=== PATIENT | male | born 2000 | race Caucasian/White ===

== ENCOUNTER 2022-05-09 07:47 | Emergency (ER) | payer OTHER ==
[2022-05-09 08:51] LABS: SARS-CoV-2 Antigen Rapid Res Negative (Negative)
--- NOTE | 2022-05-09 08:53 | EDPHYS ---
Physician Documentation [facility] Name: Kvng Kelly Age: 21 yrs Sex: Male : 2000 Arrival Date: 05/09/2022 Time: 07:49 Bed 19 Private MD: ED Physician Lisa Peck HPI: 05/09 08:31 This 21 yrs old Male presents to ER via Ambulatory with complaints of r/o covid. sp3 08:31 21-year-old who is in the presents to the ED for a COVID-19 test to allow him sp3 to fly in an airplane. Patient denies any symptoms whatsoever and states that he was told to come in for the test. Systems negative for fever, cough, congestion, chest pain, shortness of breath, known COVID-19 contacts, or any other symptoms at this time.. Historical: - Allergies: 07:56 No Known Allergies; ll1 - PMHx: 07:56 None; ll1 - PSHx: 07:56 None; ll1 - Immunization history:: Client reports receiving the 2nd dose of the Covid vaccine. - Social history:: Smoking status: Patient denies any tobacco usage or history of. ROS: 08:32 Constitutional: Negative for fever, chills, and weight loss, Eyes: Negative for injury, sp3 pain, redness, and discharge, ENT: Negative for injury, pain, and discharge, Neck: Negative for injury, pain, and swelling, Cardiovascular: Negative for chest pain, palpitations, and edema, Respiratory: Negative for shortness of breath, cough, wheezing, and pleuritic chest pain, Abdomen/GI: Negative for abdominal pain, nausea, vomiting, diarrhea, and constipation, Back: Negative for injury and pain, MS/Extremity: Negative for injury and deformity, Skin: Negative for injury, rash, and discoloration, Neuro: Negative for headache, weakness, numbness, tingling, and seizure, Psych: Negative for depression, anxiety, suicide ideation, homicidal ideation, and hallucinations, Allergy/Immunology: Negative for hives, rash, and allergies, Endocrine: Negative for neck swelling, polydipsia, polyuria, polyphagia, and marked weight changes, Hematologic/Lymphatic: Negative for swollen nodes, abnormal bleeding, and unusual bruising. 08:32 All other systems are negative. Exam: 08:32 Constitutional: This is a well developed, well nourished patient who is awake, alert, sp3 and in no acute distress. Head/Face: Normocephalic, atraumatic. Eyes: Pupils equal round and reactive to light, extra-ocular motions intact. Lids and lashes normal. Conjunctiva and sclera are non-icteric and not injected. Cornea within normal limits. Periorbital areas with no swelling, redness, or edema. Neck: Trachea midline, no thyromegaly or masses palpated, and no cervical lymphadenopathy. Supple, full range of motion without nuchal rigidity, or vertebral point tenderness. No Meningismus. Chest/axilla: Normal chest wall appearance and motion. Nontender with no deformity. No lesions are appreciated. Cardiovascular: Regular rate and rhythm with a normal S1 and S2. No gallops, murmurs, or rubs. Normal PMI, no JVD. No pulse deficits. Respiratory: Lungs have equal breath sounds bilaterally, clear to auscultation and percussion. No rales, rhonchi or wheezes noted. No increased work of breathing, no retractions or nasal flaring. Abdomen/GI: Soft, non-tender, with normal bowel sounds. No distension or tympany. No guarding or rebound. No evidence of tenderness throughout. Back: No spinal tenderness. No costovertebral tenderness. Full range of motion. Skin: Warm, dry with normal turgor. Normal color with no rashes, no lesions, and no evidence of cellulitis. MS/ Extremity: Pulses equal, no cyanosis. Neurovascular intact. Full, normal range of motion. Neuro: Awake and alert, GCS 15, oriented to person, place, time, and situation. Cranial nerves II-XII grossly intact. Motor strength 5/5 in all extremities. Sensory grossly intact. Cerebellar exam normal. Normal gait. Psych: Awake, alert, with orientation to person, place and time. Behavior, mood, and affect are within normal limits. Vital Signs: 07:56 BP 130 / 92; Pulse 83; Resp 17; Temp 97.6; Pulse Ox 97% ; Weight 108.86 kg; Height 6 ll1 ft. 1 in. (185.42 cm); Pain 0/10; 07:56 Body Mass Index 31.66 (108.86 kg, 185.42 cm) ll1 MDM: 07:59 Patient medically screened. sp3 08:33 Data reviewed: vital signs, nurses notes. ED course: We will discharge patient home sp3 once COVID test is negative.. 05/09 07:59 Order name: SARS RAPID ll1 Administered Medications: No medications were administered Disposition Summary: 05/09/22 08:53 Discharge Ordered Location: Home sp3 Condition: Stable sp3 Diagnosis - Normal Exam sp3 Followup: sp3 - With: Private Physician - When: As needed - Reason: Continuance of care Discharge Instructions: - Discharge Summary Sheet sp3 - Things to Know about the COVID-19 Pandemic - [facility] [place] sp3 Forms: - Medication Reconciliation Form sp3 - Thank You Letter sp3 - Antibiotic Education sp3 - Prescription Opioid Use sp3 Signatures: Dispatcher [employer] Hilario Champagne RN RN ll1 Lisa Peck MD MD sp3 Corrections: (The following items were deleted from the chart) 07:56 07:56 PSHx: Unable to Obtain; ll1 ll1
--- NOTE | 2022-05-09 08:53 | ER ---
Nurse's Notes [facility] Name: Kvng Kelly Age: 21 yrs Sex: Male : 2000 Arrival Date: 05/09/2022 Time: 07:49 Bed 19 Private MD: Diagnosis: Normal Exam Presentation: 05/09 07:56 Chief complaint: Patient states: Needs a negative covid test for his flight later ll1 today. No symptoms or complaints. Coronavirus screen: Vaccine status: Patient reports receiving the 2nd dose of the covid vaccine. Client denies travel out of the [place] in the last 14 days. At this time, the client does not indicate any symptoms associated with coronavirus-19. Ebola Screen: Patient denies travel to an Ebola-affected area in the 21 days before illness onset. Initial Sepsis Screen: Does the patient meet any 2 criteria? No. Patient's initial sepsis screen is negative. Does the patient have a suspected source of infection? No. Patient's initial sepsis screen is negative. Risk Assessment: Do you want to hurt yourself or someone else? Patient reports no desire to harm self or others. Onset of symptoms was May 09, 2022. 07:56 Method Of Arrival: Ambulatory ll1 07:56 Acuity: MANAS 5 ll1 Triage Assessment: 07:57 General: Appears in no apparent distress. Behavior is calm, cooperative, appropriate ll1 for age. General: needs negative covid test for a flight later today. . Pain: Denies pain. Historical: - Allergies: 07:56 No Known Allergies; ll1 - PMHx: 07:56 None; ll1 - PSHx: 07:56 None; ll1 - Immunization history:: Client reports receiving the 2nd dose of the Covid vaccine. - Social history:: Smoking status: Patient denies any tobacco usage or history of. Screenin:38 Abuse screen: Denies threats or abuse. Nutritional screening: No deficits noted. ll1 Tuberculosis screening: No symptoms or risk factors identified. Fall Risk Total Barrett Fall Scale indicates No Risk (0-24 pts). 08:38 [facility] ED Fall Risk Assessment (Adult) Score/Fall Risk Level 0 - 2 = Low Risk. ll1 Assessment: 08:38 Reassessment: No changes from previously documented assessment. Patient and/or family ll1 updated on plan of care and expected duration. Pain level reassessed. Patient is alert, oriented x 3, equal unlabored respirations, skin warm/dry/pink. 08:55 Reassessment: No changes from previously documented assessment. Patient and/or family ll1 updated on plan of care and expected duration. Pain level reassessed. Patient is alert, oriented x 3, equal unlabored respirations, skin warm/dry/pink. Vital Signs: 07:56 BP 130 / 92; Pulse 83; Resp 17; Temp 97.6; Pulse Ox 97% ; Weight 108.86 kg; Height 6 ll1 ft. 1 in. (185.42 cm); Pain 0/10; 07:56 Body Mass Index 31.66 (108.86 kg, 185.42 cm) ll1 ED Course: 07:49 Patient arrived in ED. as 07:50 Arm band placed on Patient placed in an exam room, on a stretcher. ll1 07:57 Triage completed. ll1 07:59 Lisa Peck MD is Attending Physician. sp3 07:59 Hilario Everett RN is Primary Nurse. ll1 08:06 SARS RAPID Sent. ll1 08:38 Patient has correct armband on for positive identification. Bed in low position. Call ll1 light in reach. Cardiac monitoring not applicable on this patient. 08:38 No provider procedures requiring assistance completed. Patient did not have IV access ll1 during this emergency room visit. Administered Medications: No medications were administered Medication: 08:38 VIS not applicable for this client. ll1 Outcome: 08:53 Discharge ordered by . sp3 08:56 Discharged to home ambulatory. ll1 08:56 Condition: stable 08:56 Discharge instructions given to patient, Instructed on discharge instructions, follow up and referral plans. Demonstrated understanding of instructions, follow-up care. 08:56 Patient left the ED. ll1 Signatures: Carlene Murray as Hilario Everett RN RN ll1 Lisa Peck MD MD sp3 Corrections: (The following items were deleted from the chart) 07:56 07:56 PSHx: Unable to Obtain; ll1 ll1
[2022-05-09 09:36] VITALS: BP 130/92; TEMP 97.6; O2SAT 97
== END 2022-05-09 08:56 | disposition home or self-care (01) ==
LOC: ER 07:47
DX: Z20.822 Contact with and (suspected) exposure to COVID-19 (principal)
CPT/HCPCS: 36415; 87811; 99283